=== PATIENT | female | born 1965 | race African-American/Black ===

== ENCOUNTER 2024-03-06 12:47 | Outpatient (CLI) | payer MEDICAID, SELFPAY | END 2024-03-06 12:48 | disposition home or self-care (01) | LOC: ANHAUDIO 12:48 | PROVIDERS: PCP Internal Medicine Infectious Disease; Visit Provider Otolaryngology | DX: H90.6 Mixed conductive and sensorineural hearing loss, bilateral (principal); H74.02 Tympanosclerosis, left ear; Z96.22 Myringotomy tube(s) status; H69.81 Other specified disorders of Eustachian tube, right ear | CPT/HCPCS: 92557; 92567 ==